=== PATIENT | female | born 1995 | race Caucasian/White ===

== ENCOUNTER 2019-05-19 03:35 | Inpatient (IN) | payer BC ==
[2019-05-19] MEDS ORDERED: METHYLERGONOVINE 0.2MG/ML AMP IM PRN ×2 (03:42→14:19)
[2019-05-19] MEDS ORDERED: CARBOPROST TROME 250 MCG/ML IM PRN ×2 (03:42→14:19)
[2019-05-19] MEDS ORDERED: Ringers Lactate 1,000 ML IV PRN (03:42)
[2019-05-19] MEDS ORDERED: Ringers Lactate 1,000 ML IV SCH (04:00)
[2019-05-19] MEDS ORDERED: OXYTOCIN/LR 20 UNIT/1,000 ML BAG IV SCH ×3 (04:00→15:00)
[2019-05-19 04:03] VITALS: BMI 29.2
[2019-05-19 05:04] LABS: Absolute Lymphocytes (CBC) 2.5 K/uL (0.7-4.9); Basophils % 0.4 % (0-1.3); Hematocrit 33.8 % (36.0-45.0); Lymphocytes % 29.7 % (15.3-44.8); MPV 7.8 fL (7.6-11.3); RBC Red Blood Cell Count 3.57 M/uL (3.86-4.86)
[2019-05-19] MEDS ORDERED: LIDOCAINE 1% 20 ML MDV ONE (07:07)
--- NOTE | 2019-05-19 10:11 | PREOPHP ---
Date of Admission: 05/19/2019 Ms. Becerra is a 24-year-old female, 3, para 2-0-0-2 at approximately 39 w eeks' gestation. She is admitted with complaints of leakage of fluid and spontaneous rupture of memb ranes has been confirmed. She has been followed by me during this without complications. Has Rh negative blood type. Past Medical History: Please see record Family History: Please see record. Review of Systems: She denies recent cough, cold, fever, or chills. No recent nausea or vomiting. No breast knots or l umps. No bowel or bladder issues. has been active. Physical Examination: General: Reveals a pleasant female, in no apparent distress. Neck: Supple without adenopathy or thyromegaly. Lungs: Clear. Cardiac: Regular rate and rhythm without murmurs. Breasts: Not examined. Abdomen: Estimated weight of approximately 7+ pounds. Pelvic: Cervix noted to be 3 cm dilated, mid position, 75% effaced, vertex at -2 station. Extremities: No cyanosis, clubbing, or edema. She is having irregular contractions. Pitocin augmen tation/induction of labor has been begun after initial period of observation. SALONI/MAGDALENO Voice ID: [id number]
[2019-05-19] MEDS ORDERED: PROMETHAZINE INJ 25 MG/ML AMP ONE (11:03)
[2019-05-19] MEDS ORDERED: BUTORPHANOL 1 MG/ML INJ ONE (11:03)
[2019-05-19] MEDS ORDERED: METOCLOPRAMIDE 10 MG/2mL INJ ONE (11:41)
[2019-05-19] MEDS ORDERED: NA CIT/CITRIC AC 30 ML ORAL UDC ONE (11:42)
[2019-05-19] MEDS ORDERED: FAMOTIDINE 20 MG/2 ML VIAL IV ONE (11:42)
[2019-05-19] MEDS ORDERED: LIDOCAINE 2% MPF 5 ML VIAL ONE (11:46)
[2019-05-19] MEDS ORDERED: propofoL 200 MG/20 ML VIAL IV ONE (11:46)
[2019-05-19] MEDS ORDERED: SUCCINYLCHOLINE 20 MG/ML (10 ML) IV ONE (11:47)
[2019-05-19] MEDS ORDERED: FENTANYL CITR 100 MCG/2 ML ONE (12:47)
[2019-05-19] MEDS ORDERED: FENTANYL CITR 250 MCG/5 ML ONE (12:48)
[2019-05-19] MEDS ORDERED: METHYLERGONOVINE 0.2 MG TAB PO PRN (14:19)
[2019-05-19] MEDS ORDERED: ONDANSETRON 4 MG (ODT) TAB PO PRN (14:19)
[2019-05-19] MEDS ORDERED: ACETAMINOPHEN 500 MG TAB PO PRN (14:19)
[2019-05-19] MEDS ORDERED: IBUPROFEN 600 MG TAB PO PRN (14:19)
[2019-05-19] MEDS ORDERED: Ringers Lactate 4,000 ML IV ONE (14:43)
[2019-05-19] MEDS ORDERED: NA CHLORIDE 0.9% 1,000 ML ONE (14:48)
[2019-05-20 00:32] LABS: RPR (Rapid Plasma Reagin) NON-REACT (NON-REACT)
[2019-05-20] MEDS ORDERED: Rho(D) IG (HUMAN) 300 MCG SYR IM ONE (07:19)
--- NOTE | 2019-05-20 08:19 | DN ---
Surgeon: Eusebio Lynch MD Ms. Becerra is a 24-year-old female, 3, para 2-0-0-2 at 39 weeks gestation , admitted with spontaneous rupture of membranes, not in active labor. After initial period of obser vation, Pitocin induction of labor was begun. She had a first stage of labor of approximately 12 tiesha rs and 4 minutes, second stage of labor of 15 minutes. She delivered by spontaneous controlled vagin al delivery a 7 pound 7 ounce female . Infant was delivered occiput posterior. After delayed cord clamping, cord was clamped, cut, and the infant placed on mother's upper abdomen. Cord blood wa s obtained. Placenta spontaneously expelled and appeared to be intact. Intrauterine examination rev ealed no retained placental fragments. She suffered first-degree right labial laceration and a first -degree posterior perineum laceration, repaired with simple sutures of 3-0 Vicryl. She had an epidur al catheter placed later in the course of labor, which provided good analgesia. Quantitative blood l oss was 124 mL. Patient's labor course was complicated by severe variable decelerations intermittent ly during her labor course and she was delivered in the operating room because of concern that it neo ht require section. SALONI/MAGDALENO Voice ID: [id number] Report ID: [id number]
[2019-05-20 15:14] VITALS: BP 127/56; TEMP 97
[2019-05-23 02:55] LABS: HBsAG Nonreactive (Nonreactive)
--- NOTE | 2019-05-23 12:35 | DS ---
Date of Discharge: 05/20/2019 Hospital Discharge Diagnosis: Term , delivered. Complications: Iron-deficiency anemia. Procedures: Pitocin induction of labor, spontaneous controlled vaginal delivery in occiput posterior position. Viable female infant, repair of perineal lacerations. Hospital Course: Patient is a 24-year-old female, 3, para 2-0-0-2 at 39 we eks' gestation, admitted with spontaneous rupture of membranes, not in active labor. Labor course wa s complicated by intermittent severe variable decelerations, but she delivered 7 pounds 7 ounces fema le infant, occiput posterior, was dismissed on the first day. She is Rh negative blood ty pe but cord blood type was Rh negative, so she did not require RhoGAM. Lab work obtained during this hospital stay included an admission hemoglobin and hematocrit of 12.3 and 33.8, dismissal 31.3. She had a nonreactive RPR and she was dismissed, to continue taking her iron and vitamins. BJ Voice ID: [id number] Report ID: [id number]
== END 2019-05-20 16:25 | disposition home or self-care (01) | DRG 807 ==
LOC: 2ND-WC 03:35
PROVIDERS: ADMIT Specialist; ATTEND Specialist
PROC: 0HQ9XZZ Repair Perineum Skin, External Approach (ICD-10-PCS; principal; 2019-05-19)
PROC: 10E0XZZ Delivery of Products of Conception, External Approach (ICD-10-PCS; 2019-05-19)
PROC: 00HU33Z Insertion of Infusion Device into Spinal Canal, Percutaneous Approach (ICD-10-PCS; 2019-05-19)
DX: O70.0 First degree perineal laceration during delivery (principal); Z37.0 Single live birth; O99.02 Anemia complicating childbirth; D50.9 Iron deficiency anemia, unspecified; Z3A.39 39 weeks gestation of pregnancy
CPT/HCPCS: 36415; 85014; 85025; 86592; 86850; 86870; 86900; 86901; 87340; J0330; J0595; J2210; J2550; J2590; J2704; J2765; J3010; J7030; J7120